=== PATIENT | female | born 2000 | race Caucasian/White ===

== ENCOUNTER 2019-05-09 03:54 | Emergency (ER) | payer SELFPAY ==
[~2019-05-09] VITALS: Ht 154.9 cm; Wt 68.2 kg
[2019-05-09 04:00] VITALS: BP 126/73
--- NOTE | 2019-05-09 04:04 | PHYS DOC ---
Adult General Chief Complaint Chief Complaint: SEIZURE HPI HPI 19-year-old female presents to the emergency department with "seizure activity." Patient arrives via private vehicle, wheelchair requested secondary to altered mental status. When patient arrived in the emergency department she is openly talking moving all extremities without concern for altered mental status. She does complain of a headache which started earlier and she was taking Tylenol per her boyfriend. She states she has a seizure disorder however has not seen a neurologist nor has she been prescribed antiseizure medications on a regular basis. He does describe taking Vistaril as needed, Wellbutrin, trazodone, and she thinks Keppra. She has history of bipolar disorder, anxiety, PTSD. Nothing makes her symptoms worse, nothing makes her symptoms better. She is not postictal at this time, she did not soil herself. Patient states she's not been taking medications because she does not have insurance, she just moved to [place]. She has been off medications for greater than one month. Review of Systems Review of Systems Constitutional: Denies fever or chills [] HENT: Denies nasal congestion or sore throat [] Respiratory: Denies cough or shortness of breath [] Cardiovascular: No additional information not addressed in HPI [] GI: Denies abdominal pain, nausea, vomiting, bloody stools or diarrhea [] : Denies dysuria or hematuria [] Musculoskeletal: Denies back pain or joint pain [] Integument: Denies rash or skin lesions [] Neurologic: + headache, no focal weakness or sensory changes [] All other systems were reviewed and found to be within normal limits, except as documented in this note. Current Medications Current Medications Current Medications Medications (Trade) Dose Ordered Sig/Arley Start Time Stop Time Status Last Admin Dose Admin Ketorolac Tromethamine (Toradol 30mg Vial) 30 mg STK-MED ONCE 05/09/19 04:25 05/09/19 04:26 DC Ketorolac Tromethamine (Toradol Im) 60 mg 1X ONCE 05/09/19 04:15 05/09/19 04:43 DC 05/09/19 04:32 60 MG Allergies Allergies Allergies Coded Allergies Type Severity Reaction Last Updated Verified No Known Drug Allergies 05/09/19 No Physical Exam Physical Exam Constitutional: Well developed, well nourished, anxious, non-toxic appearance. [] HENT: Normocephalic, atraumatic, bilateral external ears normal, oropharynx moist, no oral exudates, nose normal. [] Eyes: PERRLA, EOMI, conjunctiva normal, no discharge. [] Cardiovascular:Heart rate regular rhythm, no murmur [] Lungs & Thorax: Bilateral breath sounds clear to auscultation [] Abdomen: Bowel sounds normal, soft, no tenderness, no masses, no pulsatile masses. [] Skin: Warm, dry, no erythema, no rash. [] Extremities: No tenderness, no edema. [] Neurologic: Alert and oriented X 3, no focal deficits noted. [] Psychologic: Affect normal, judgement normal, mood normal. [] Current Patient Data Vital Signs Vital Signs Date Time Temp Pulse Resp B/P (MAP) Pulse Ox O2 Delivery O2 Flow Rate FiO2 05/09/19 04:00 98.2 105 15 126/73 (90) 100 Room Air 98.2 EKG EKG [] Radiology/Procedures Radiology/Procedures [] Course & Med Decision Making Course & Med Decision Making Pertinent Labs and Imaging studies reviewed. (See chart for details) 19-year-old female presents to the emergency department with "seizure activity." Patient arrives via private vehicle, wheelchair requested secondary to altered mental status. When patient arrived in the emergency department she is openly talking moving all extremities without concern for altered mental status. She does complain of a headache which started earlier and she was taking Tylenol per her boyfriend. She states she has a seizure disorder however has not seen a neurologist nor has she been prescribed antiseizure medications on a regular basis. He does describe taking Vistaril as needed, Wellbutrin, trazodone, and she thinks Keppra. She has history of bipolar disorder, anxiety, PTSD. Nothing makes her symptoms worse, nothing makes her symptoms better. She is not postict al at this time, she did not soil herself. Patient states she's not been taking medications because she does not have insurance, she just moved to [place]. She has been off medications for greater than one month. Toradol 60mg IM for headache Discussed diagnosis of non-epileptiform seizure type activity Recommend follow up with PCP/establish care with PCP. Discussed return precautions with patient Milena Disclaimer Dragon Disclaimer This electronic medical record was generated, in whole or in part, using a voice recognition dictation system. Departure Departure Impression: Primary Impression: Nonepileptic episode Disposition: 01 HOME, SELF-CARE Condition: IMPROVED Patient Instructions: Nonepileptic Seizures Additional Instructions: Return to the ER with worsening symptoms, intractable pain, fever, altered mental status Tylenol/Motrin as needed for pain Recommend establishing care with PCP for medical problems and refill of medications DINORA LUGO MD May 09, 2019 04:04
[2019-05-09] MEDS ORDERED: KETOROLAC 30 MG/ML VIAL. ONE (04:25)
[2019-05-09] MEDS: KETOROLAC 60 MG/2 ML VIAL. IM ONE (04:32)
== END 2019-05-09 05:03 | disposition home or self-care (01) ==
LOC: ER 03:54
DX: G40.409 Other generalized epilepsy and epileptic syndromes, not intractable, without status epilepticus (principal); R41.82 Altered mental status, unspecified; R05 Cough; F31.9 Bipolar disorder, unspecified; F41.9 Anxiety disorder, unspecified; F43.12 Post-traumatic stress disorder, chronic
CPT/HCPCS: 96372; 99283; J1885